=== PATIENT | male | born 1935 | race African-American/Black ===

== ENCOUNTER 2020-12-16 18:26 | Emergency (ER) | payer MEDICARE, BC ==
[2020-12-16 21:03] LABS: #Eosinphils 0.4 10x3/uL (0.0-0.5); #Monocytes 0.7 10x3/uL (0.0-1.1); #Neutrophils 2.4 10x3/uL (1.5-8.4); %Basophils 0.7 % (0.0-2.0); %Eosinophils 8.4 % (0.0-6.0); %Lymphocytes 15.3 % (18.0-47.0); %Monocytes 17.7 % (0.0-10.0); %Neutrophils 57.9 % (40.0-75.0); Hemoglobin 10.4 g/dL (13.5-17.5); Mean Corpuscular HGB CONC 32.1 g/dL (32.0-36.0); Mean Corpuscular Hemoglobin 29.7 pg (27.0-33.0); Mean Corpuscular Volume 92.6 fl (81.2-95.1); Platelet Count 108 10x3/uL (150-450); RBC Distribution Width 17.1 % (11.5-14.5); White Blood Cell (WBC) Count 4.2 10x3/uL (3.5-10.5)
[2020-12-16 21:10] LABS: ALT (SGPT) Less than 6 U/L (8-55); AST (SGOT) 10 U/L (5-34); Albumin 3.3 g/dL (3.4-4.8); Alkaline Phosphatase 53 U/L (40-110); Anion Gap 20 mmol/L (10-20); BUN (Urea Nitrogen) 43 mg/dL (8.4-25.7); Bilirubin, Total 0.4 mg/dL (0.2-1.2); Calc. Creatinine Clearance 0 mL/min (70-130); Calcium 8.8 mg/dL (7.8-10.44); Carbon Dioxide 24 mmol/L (23-31); Chloride 96 mmol/L (98-107); Globulin 3.4 g/dL (2.4-3.5); Glucose 92 mg/dL (83-110); Potassium 4.8 mmol/L (3.5-5.1); Protein, Total 6.7 g/dL (5.8-8.1); Sodium 135 mmol/L (136-145)
[2020-12-16 21:33] LABS: CKMB 3.2 ng/mL (0-6.6)
== END 2020-12-17 00:07 | disposition home or self-care (01) ==
LOC: CSHERS 18:26
DX: R06.00 Dyspnea, unspecified (principal); R77.8 Other specified abnormalities of plasma proteins; N18.6 End stage renal disease; Z99.2 Dependence on renal dialysis; Z79.899 Other long term (current) drug therapy
CPT/HCPCS: 36415; 71045; 80053; 82553; 83880; 84484; 85025; 85379; 93005

== ENCOUNTER 2021-01-24 13:51 | Emergency (ER) | payer MEDICARE, BC ==
[2021-01-24 15:19] LABS: Hemoglobin 7.9 g/dL (13.5-17.5); Mean Corpuscular HGB CONC 31.1 g/dL (32.0-36.0); Mean Corpuscular Hemoglobin 30.7 pg (27.0-33.0); Mean Corpuscular Volume 98.8 fl (81.2-95.1); Mean Platelet Volume 12.4 fl (7.4-10.4); Platelet Count 76 10x3/uL (150-450); Red Blood Cell (RBC) Count 2.57 10x6/uL (4.32-5.72); White Blood Cell (WBC) Count 3.7 10x3/uL (3.5-10.5)
[2021-01-24 15:20] LABS: ALT (SGPT) 11 U/L (8-55); AST (SGOT) 14 U/L (5-34); Albumin 3.3 g/dL (3.4-4.8); Alkaline Phosphatase 55 U/L (40-110); Anion Gap 13 mmol/L (10-20); BUN (Urea Nitrogen) 33 mg/dL (8.4-25.7); Bilirubin, Total 0.6 mg/dL (0.2-1.2); Calc. Creatinine Clearance 0 mL/min (70-130); Carbon Dioxide 33 mmol/L (23-31); Chloride 100 mmol/L (98-107); Globulin 3.1 g/dL (2.4-3.5); Glucose 66 mg/dL (83-110); Potassium 3.9 mmol/L (3.5-5.1); Protein, Total 6.4 g/dL (5.8-8.1); Sodium 142 mmol/L (136-145)
[2021-01-24 15:48] LABS: Manual Diff?? YES
[2021-01-24 15:49] LABS: Eosinophils 3 % (0-10); Lymphocytes 19 % (21-51); Monocytes 5 % (0-10)
[2021-01-24 15:50] LABS: Platelet Morphology Comment Appears Decreased
== END 2021-01-24 16:01 | disposition home or self-care (01) ==
LOC: CSHERS 13:51
DX: N17.9 Acute kidney failure, unspecified (principal); N18.6 End stage renal disease; I50.9 Heart failure, unspecified; Z79.82 Long term (current) use of aspirin; Z79.899 Other long term (current) drug therapy; Z99.2 Dependence on renal dialysis
CPT/HCPCS: 71045; 80053; 83605; 85025; 87040